=== PATIENT | male | born 1945 | race Caucasian/White ===

== ENCOUNTER 2019-10-08 07:06 | Inpatient (IN) | payer OTHER ==
[~2019-10-08] VITALS: Ht 172.7 cm; Wt 84.2 kg
[~2019-10-08 07:06] MED LIST: ESOM20; GABA300; HYDACE5 PO; METO25 PO
[2019-10-08 09:30] LABS: BASOPHILS ABSOLUTE AUTO 0.08 K/mm3 (0.00-0.23); BASOPHILS PERCENT AUTO 1 % (0-2); EOSINOPHILS ABSOLUTE AUTO 0.07 K/mm3 (0.00-0.68); EOSINOPHILS PERCENT AUTO 1 % (0-6); Hematocrit 39.9 % (37.0-53.0); Hemoglobin 13.3 g/dL (13.5-17.5); IMMATURE GRAN ABSOLUTE AUTO 0.12 K/mm3 (0.00-0.10); IMMATURE GRAN PERCENT AUTO 1 % (0-1); LYMPHOCYTES PERCENT AUTO 7 % (21-46); MONOCYTES ABSOLUTE AUTO 1.09 K/mm3 (0.16-1.47); MONOCYTES PERCENT AUTO 7 % (4-13); Mean Corpuscular HGB 31.5 pg (26.0-34.0); Mean Corpuscular HGB Conc 33.3 g/dL (31.5-36.5); Mean Corpuscular Volume 95 fL (80-100); Mean Platelet Volume 10.2 fL (9.1-12.4); NEUTROPHILS PERCENT AUTO 84 % (41-73); Platelet Count 261 K/mm3 (150-400); RDW Coefficient Variation 12.9 % (11.7-14.2); RDW Standard Deviation 44.1 fL (35.1-46.3); Red Blood Cell Count 4.22 M/mm3 (4.30-5.90); White Blood Cell Count 15.46 K/mm3 (4.00-11.30)
[2019-10-08 09:47] LABS: Alanine Aminotransfer (ALT/SGP 29 U/L (12-78); Albumin, Blood 3.6 g/dL (3.4-5.0); Alk Phos 60 U/L (50-136); Anion Gap 6 mmol/L (6-16); Aspartate Aminotrans (AST/SGOT 21 U/L (12-37); Bilirubin, Total 0.8 mg/dL (0.1-1.0); Blood Urea Nitrogen 15 mg/dL (8-24); Bun/Creatinine Ratio 18.1 (12.0-20.0); CO2, Blood 27 mmol/L (21-32); Calcium, Blood 8.7 mg/dL (8.5-10.1); Chloride, Blood 104 mmol/L (98-108); Creatinine, Blood 0.83 mg/dL (0.60-1.20); Globulin, Blood 3.7 g/dL (2.2-4.0); Glomerular Filtration Rate >60 (60-); Glucose, Blood 111 mg/dL (70-99); Potassium, Blood 4.3 mmol/L (3.5-5.5); Sodium, Blood 137 mmol/L (136-145); Total Protein, Blood 7.3 g/dL (6.4-8.2)
[2019-10-08 10:45] LABS: Source, Urine Voided
[2019-10-08 10:48] LABS: Bilirubin, Urine Neg (Neg); Blood, Urine 2+ (Neg); Glucose Qualitative, Urine Neg (Neg); Ketones, Urine 1+ (Neg); Leukocyte Esterase, Urine Neg (Neg); Nitrite, Urine Neg (Neg); Protein, Urine Neg (Neg); Specific Gravity, Urine 1.015 (1.003-1.022); Urobilinogen, Urine NORM (Normal)
[2019-10-08 11:06] LABS: Color, Urine Yellow (P-Yellow)
[2019-10-08 11:07] LABS: Appearance, Urine Clear (Clear); Bacteria Not Seen /hpf; Red Blood Cells, Urine 0-2 /hpf (0-2); Squamous Epithelial Cells Not Seen /hpf (Few); White Blood Cells, Urine Not Seen /hpf (0-5)
[2019-10-08] MEDS ORDERED: HYDR1TAB94 PO (12:59)
[2019-10-08] MEDS ORDERED: METF500 PO (13:00)
[2019-10-08] MEDS ORDERED: ALLO100 PO (13:01)
--- NOTE | 2019-10-08 19:44 | NUR ---
SHIFT SUMMARY: A&O X 3, FEELS POORLY. C/O PAIN IN L HIP AND KNEE; MEDICATED PER EMAR WITH ADEQUATE RELIEF. OM O2 AT 2 L/MIN NC, SAT > 92%, LUNGS CTAB, SLIGHT LOGAN WITH ACTIVITY. IN NSR WITH PVC'S. WENT TO MRI VIA [employer] AT 1740. STATED THAT R AC IV SITE IS TENDER, WOULD LIKE IT CHANGED.
[2019-10-09 05:12] LABS: BASOPHILS ABSOLUTE AUTO 0.06 K/mm3 (0.00-0.23); BASOPHILS PERCENT AUTO 1 % (0-2); EOSINOPHILS ABSOLUTE AUTO 0.12 K/mm3 (0.00-0.68); EOSINOPHILS PERCENT AUTO 1 % (0-6); Hematocrit 34.6 % (37.0-53.0); Hemoglobin 10.7 g/dL (13.5-17.5); IMMATURE GRAN ABSOLUTE AUTO 0.06 K/mm3 (0.00-0.10); IMMATURE GRAN PERCENT AUTO 1 % (0-1); LYMPHOCYTES ABSOLUTE AUTO 1.59 K/mm3 (0.84-5.20); LYMPHOCYTES PERCENT AUTO 13 % (21-46); MONOCYTES ABSOLUTE AUTO 0.99 K/mm3 (0.16-1.47); MONOCYTES PERCENT AUTO 8 % (4-13); Mean Corpuscular HGB 30.1 pg (26.0-34.0); Mean Corpuscular HGB Conc 30.9 g/dL (31.5-36.5); Mean Platelet Volume 9.9 fL (9.1-12.4); NEUTROPHILS ABSOLUTE AUTO 9.01 K/mm3 (1.96-9.15); NEUTROPHILS PERCENT AUTO 76 % (41-73); Platelet Count 226 K/mm3 (150-400); RDW Coefficient Variation 12.8 % (11.7-14.2); Red Blood Cell Count 3.55 M/mm3 (4.30-5.90); White Blood Cell Count 11.83 K/mm3 (4.00-11.30)
[2019-10-09 05:26] LABS: Mean Corpuscular Volume 98 fL (80-100)
[2019-10-09 05:34] LABS: Alanine Aminotransfer (ALT/SGP 18 U/L (12-78); Albumin, Blood 2.6 g/dL (3.4-5.0); Albumin/Globulin Ratio 0.8 (0.8-1.8); Alk Phos 53 U/L (50-136); Anion Gap 4 mmol/L (6-16); Aspartate Aminotrans (AST/SGOT 13 U/L (12-37); Bilirubin, Total 0.8 mg/dL (0.1-1.0); Blood Urea Nitrogen 12 mg/dL (8-24); Bun/Creatinine Ratio 14.2 (12.0-20.0); CO2, Blood 28 mmol/L (21-32); Calcium, Blood 7.3 mg/dL (8.5-10.1); Chloride, Blood 105 mmol/L (98-108); Creatinine, Blood 0.85 mg/dL (0.60-1.20); Globulin, Blood 3.4 g/dL (2.2-4.0); Glomerular Filtration Rate >60 (60-); Glucose, Blood 120 mg/dL (70-99); Potassium, Blood 3.7 mmol/L (3.5-5.5); Sodium, Blood 137 mmol/L (136-145)
--- NOTE | 2019-10-09 06:55 | NUR ---
10/09/19 0640 ASSISTEED UP TO VOID. TAKING ORAL FLUIDS WELL. SLIGHT TEMP THIS SHIFT. OTHERWISE A BETTER NIGHT.
--- NOTE | 2019-10-09 15:10 | NUR ---
PT OFF UNIT @ 1440 TO RADIOLOGY FOR U/S GUIDED ASPIRATION OF L KNEE.
--- NOTE | 2019-10-09 18:47 | NUR ---
SHIFT SUMMARY: PLEASANT AND COOPERATIVE THIS SHIFT. PAIN WELL CONTROLLED WITH CURRENT REGIMEN. HAD U/S GUIDED ASPIRATION OF L KNEE, SPECIMEN SENT FOR CULTURE. STARTED ON ABX FOR + BLOOD CULTURE, TOLERATING WELL. HAD BM TODAY, USING BR. USING O2 @ 2 L/MIN NC, VSS.
--- NOTE | 2019-10-10 05:12 | NUR ---
SHIFT SUMMARY: VSS. AFEB. AAOX4. ABLE TO COMMUNICATE NEEDS. MED FOR PAIN X2 TONIGHT. ONGOING L KNEE AND HIP PAIN. L KNEE SLIGHTLY MORE SWOLLEN THAN R. IV FLUIDS COMPLETED TONIGHT. LSCTA, NO COUGH. 02 SATS WNL ON RA. NO ACUTE CHANGES OVERNIGHT. WILL CONT TO MONITOR.
[2019-10-10 05:34] LABS: BASOPHILS ABSOLUTE AUTO 0.05 K/mm3 (0.00-0.23); BASOPHILS PERCENT AUTO 1 % (0-2); EOSINOPHILS ABSOLUTE AUTO 0.18 K/mm3 (0.00-0.68); EOSINOPHILS PERCENT AUTO 2 % (0-6); Hematocrit 35.9 % (37.0-53.0); Hemoglobin 11.3 g/dL (13.5-17.5); IMMATURE GRAN ABSOLUTE AUTO 0.05 K/mm3 (0.00-0.10); IMMATURE GRAN PERCENT AUTO 1 % (0-1); LYMPHOCYTES ABSOLUTE AUTO 1.77 K/mm3 (0.84-5.20); LYMPHOCYTES PERCENT AUTO 21 % (21-46); MONOCYTES ABSOLUTE AUTO 0.94 K/mm3 (0.16-1.47); MONOCYTES PERCENT AUTO 11 % (4-13); Mean Corpuscular HGB Conc 31.5 g/dL (31.5-36.5); Mean Corpuscular Volume 98 fL (80-100); Mean Platelet Volume 9.9 fL (9.1-12.4); NEUTROPHILS ABSOLUTE AUTO 5.32 K/mm3 (1.96-9.15); NEUTROPHILS PERCENT AUTO 64 % (41-73); Platelet Count 219 K/mm3 (150-400); RDW Coefficient Variation 12.6 % (11.7-14.2); RDW Standard Deviation 45.6 fL (35.1-46.3); Red Blood Cell Count 3.65 M/mm3 (4.30-5.90); White Blood Cell Count 8.31 K/mm3 (4.00-11.30)
[2019-10-10 05:51] LABS: Anion Gap 1 mmol/L (6-16); Blood Urea Nitrogen 11 mg/dL (8-24); Bun/Creatinine Ratio 14.3 (12.0-20.0); CO2, Blood 30 mmol/L (21-32); Chloride, Blood 109 mmol/L (98-108); Creatinine, Blood 0.77 mg/dL (0.60-1.20); Glomerular Filtration Rate >60 (60-); Glucose, Blood 106 mg/dL (70-99); Sodium, Blood 140 mmol/L (136-145)
--- NOTE | 2019-10-10 16:58 | NUR ---
PT IS A/OX3, PLEASANT AND COOPERATIVE, THE PT IS UP IND IN HIS ROOM, THE PT APPEARS TO BE BREATHING EASILY AT THIS TIME, THE PT WAS MEDICATED FOR PAIN X1 THIS AFTERNOON, AFTER HE TOOK A SHOWER FOR LEFT KNEE PAIN, THE PT DENIED ANY OTHER PAIN, FAMILY WAS IN TO SEE THE PT TODAY, CALL LIGHT IN REACH NO OTHER CHANGES NOTICED THIS SHIFT
--- NOTE | 2019-10-10 21:01 | NUR ---
10/10/192049 Pt is alert and oriented. Pt does have some pain kleft hip and predominantly left knee, 08/24. Medicated with 2 [place]. Pt states had a BM today. Left knee is very sl swollen, warmer than the right, no redness noted. Pt is able to walk independantly to BE, is steady on feet. Lungs are clear. Tele shows SR at 76. Pt is tired and plans to rest. Call light in reach. Door closed.
[2019-10-11 05:47] LABS: BASOPHILS ABSOLUTE AUTO 0.05 K/mm3 (0.00-0.23); BASOPHILS PERCENT AUTO 1 % (0-2); EOSINOPHILS ABSOLUTE AUTO 0.24 K/mm3 (0.00-0.68); EOSINOPHILS PERCENT AUTO 3 % (0-6); Hematocrit 35.7 % (37.0-53.0); Hemoglobin 11.4 g/dL (13.5-17.5); IMMATURE GRAN ABSOLUTE AUTO 0.04 K/mm3 (0.00-0.10); IMMATURE GRAN PERCENT AUTO 1 % (0-1); LYMPHOCYTES ABSOLUTE AUTO 1.82 K/mm3 (0.84-5.20); LYMPHOCYTES PERCENT AUTO 24 % (21-46); MONOCYTES ABSOLUTE AUTO 0.76 K/mm3 (0.16-1.47); MONOCYTES PERCENT AUTO 10 % (4-13); Mean Corpuscular HGB 30.8 pg (26.0-34.0); Mean Corpuscular HGB Conc 31.9 g/dL (31.5-36.5); Mean Corpuscular Volume 97 fL (80-100); Mean Platelet Volume 9.4 fL (9.1-12.4); NEUTROPHILS ABSOLUTE AUTO 4.62 K/mm3 (1.96-9.15); NEUTROPHILS PERCENT AUTO 61 % (41-73); Platelet Count 224 K/mm3 (150-400); RDW Coefficient Variation 12.2 % (11.7-14.2); RDW Standard Deviation 43.6 fL (35.1-46.3); White Blood Cell Count 7.53 K/mm3 (4.00-11.30)
--- NOTE | 2019-10-11 07:27 | NUR ---
Rn summary: Patient has rested soundly first of shift, was medicated again at 0230 with good relief. Pt states he rested on and off the second half of shift. Pt continues to be independant in room. Waiting knee aspirte results and hoping for discharge home today. Bedside report with Afia ALVARENGA. Call light in reach.
[2019-10-11] MEDS ORDERED: CEFD300 PO (10:22)
[2019-10-11] MEDS ORDERED: VISBIOME PO (10:29)
[2019-10-11] MEDS ORDERED: IBUP800 PO (10:30)
--- NOTE | 2019-10-11 11:01 | NUR ---
DISCHARGE DISCAHRGE MEDICATIONS AND INSTRUCTIONS EXPLAINED TO PATIENT. PATIENT STATED UNDERSTANDING. FOLLOW UP WITH MARANDA NEXT WEEK, MRI IMAGES PUSHED. [facility] WILL CALL PATIENT AT HOME TO SCHEDULE FOLLOW UP. IV REMOVED WITHOUT DIFFICULTY. BELONGINGS WITH PATIENT. PATIENT TRANSFERED TO PRIVATE VEHICLE VIA WHEELCHAIR.
== END 2019-10-11 10:45 | disposition home or self-care (01) | DRG 871 ==
LOC: ER 07:06 → MEDS 07:07 → ER 10:36 → MEDS 12:00
PROVIDERS: Emergency Medicine; ADMIT Internal Medicine
PROC: 0S9D3ZX Drainage of Left Knee Joint, Percutaneous Approach, Diagnostic (ICD-10-PCS; principal; 2019-10-09)
DX: A41.1 Sepsis due to other specified staphylococcus (principal); J18.9 Pneumonia, unspecified organism; M71.22 Synovial cyst of popliteal space [Baker], left knee; R93.7 Abnormal findings on diagnostic imaging of other parts of musculoskeletal system; E11.42 Type 2 diabetes mellitus with diabetic polyneuropathy; I10 Essential (primary) hypertension; M17.12 Unilateral primary osteoarthritis, left knee; M16.12 Unilateral primary osteoarthritis, left hip; N40.0 Benign prostatic hyperplasia without lower urinary tract symptoms; E78.5 Hyperlipidemia, unspecified; Z87.891 Personal history of nicotine dependence
CPT/HCPCS: 20611; 36415; 71045; 73721; 80048; 80053; 81001; 82947; 83605; 84145; 85025; 85651; 86140; 87040; 87070; 87075; 87205; 93005; 93010; 96361; 96365; 96375; 99285-25; A9270; A9270-GY; J0696; J1170; J1650; J2405; J3370; J7030; J7050; U0002